=== PATIENT | male | born 1995 | race Caucasian/White ===

== ENCOUNTER 2016-11-02 14:00 | Emergency (ER) | payer OTHER ==
[~2016-11-02] VITALS: Ht 172.7 cm; Wt 68.5 kg
[2016-11-02 16:15] VITALS: BP 122/78
== END 2016-11-02 16:52 | disposition home or self-care (01) ==
LOC: ED 14:00
DX: S09.90XA Unspecified injury of head, initial encounter (principal); W17.89XA Other fall from one level to another, initial encounter; Y93.89 Activity, other specified; Y99.8 Other external cause status; Y92.89 Other specified places as the place of occurrence of the external cause
CPT/HCPCS: J8597